=== PATIENT | female | born 1945 | race Caucasian/White ===

== ENCOUNTER 2020-06-21 19:10 | Inpatient (IN) | payer MEDICARE, OTHER ==
[~2020-06-21] VITALS: Ht 157.5 cm; Wt 56.2 kg
--- NOTE | 2020-06-21 19:33 | NUR ---
Dr. Acosta at bedside for MSE .
[2020-06-21] MEDS ORDERED: CHLO25CA22 PO (19:34)
[2020-06-21] MEDS ORDERED: DOCU-141 PO (19:34)
[2020-06-21] MEDS ORDERED: AMLO5TAB9 PO (19:34)
[2020-06-21] MEDS ORDERED: VALA500T PO (19:34)
[2020-06-21] MEDS ORDERED: LEVO75TA56 PO (19:34)
--- NOTE | 2020-06-21 19:35 | NUR ---
Pt is 75 y/o female BIB ambulance from [facility] for medical clearance and possible admission to MHU. Pt is AO x 4, able to verbalize needs. With c/o 5/10 neck pain and "feeling anxious hibbie jjibbies". Patient is brought for being on 5150 hold since 06/20/20 for being found on a neighbor's front door naked. Pt is denying the incidence. Pt also states that her last drink of alcohol, 1 bottle of Owens beer was 4 days ago. But police report says otherwise. Pt not in active distress. Cooperative with nurse. However noted with some mild tremors on hands. Will continue to monitor for safety.
[2020-06-21] MEDS ORDERED: ACETAMINOPHEN ES 500 MG TABLET ONE (19:56)
[2020-06-21] MEDS ORDERED: LORAZEPAM 1 MG TABLET ONE (19:56)
[2020-06-21] MEDS ORDERED: LORAZEPAM 0.5 MG TABLET PO ONE (20:15)
[2020-06-21] MEDS ORDERED: ACETAMINOPHEN ES 500 MG TABLET PO ONE (20:15)
--- NOTE | 2020-06-21 20:33 | NUR ---
Pt remains monitored at this time. Currently in bed, but appears unable to keep still. Pt stands up and walks around, able to be redirected. Closely monitoring being done.
--- NOTE | 2020-06-21 20:49 | NUR ---
Per Dr. Acosta, patient is medically clear to be admitted to MHU. Admitting Dx: Psychosis; Admitting Dr. Walden/Abelardo. Report given to Rika CLAUDIO.
[2020-06-21] MEDS ORDERED: MAG HYDROX/AL HYDROX/SIMETH 30 ML LIQUID UDC PO PRN (21:15)
[2020-06-21] MEDS ORDERED: BLOOD SUGAR DIAGNOSTIC 1 EACH STRIP VI ONE (21:15)
[2020-06-21] MEDS ORDERED: MAGNESIUM HYDROXIDE 30 ML LIQUID UDC PO PRN (21:15)
[2020-06-21] MEDS: LORAZEPAM 1 MG TABLET PO PRN (21:43)
[2020-06-21] MEDS: ACETAMINOPHEN 325 MG TABLET PO PRN (21:44)
--- NOTE | 2020-06-21 22:00 | NUR ---
GPS ADMISSION NOTE: Patient is a 75 year old female, brought in to the hospital by ambulance, admitted on a 5150 from [facility] in [place], prior to that patient was at home. Lives alone. Patient is admitted on a 5150 for GD and DTS. Per hold, a neighbor called police because this patient was wondering around to mobile home park, naked except for a small jacket, exposing her breasts and private parts. Patient appeared intoxicated and did not know how she got there. Upon face to face evaluation patient was awake, alert but confused. Patient minimized the event and could not understand "what the big deal is". Patient also had visible hand tremors d/t alcohol withdrawal and was medicated with Ativan and Vitamins per MD order. Dr. Walden was notified and orders were received for sleeping aids as well. Corporate Operations Compliance Manager oriented patient to the environment and provided the Patients Rights handbook , along with the patients Advisement. VS are stable, patient denies pain. Continuing to monitor for safety, confusion and any behavior escalation. No acute issues or distress noted at this time.
[2020-06-21] MEDS: TEMAZEPAM 7.5 MG CAPSULE PO PRN (22:16)
[2020-06-22] MEDS: FOLIC ACID 1 MG TABLET PO SCH ×2 (00:09→08:36)
[2020-06-22] MEDS: THIAMINE HCL 100 MG TABLET PO SCH ×2 (00:09→08:35)
[2020-06-22] MEDS: MULTIVITAMINS,THERAPEUTIC TABLET PO SCH ×2 (00:09→08:36)
[2020-06-22] MEDS: TEMAZEPAM 7.5 MG CAPSULE PO PRN ×2 (00:32→22:29)
--- NOTE | 2020-06-22 05:27 | NUR ---
Patient up and down all night. Coming out to the nurses station asking for food items and more medications. The roommate had kept patient up by leaving the room light on and yelling from time to time. Plan to assist patient to the shower this am and continue to reorient to the environment as needed. No behavioral issues noted, just forgetfulness.
[2020-06-22] MEDS: LORAZEPAM 1 MG TABLET PO PRN ×5 (06:03→23:30)
[2020-06-22 07:16] LABS: BILIRUBIN,TOTAL 0.8 mg/dL (0.2-1.0)
[2020-06-22 07:30] VITALS: BP 127/84
[2020-06-22 07:37] LABS: BASOPHILS % (AUTO) 0.8 % (0.0-2.0); EOSINOPHILS # (AUTO) 0.1 K/uL (0.0-0.7); EOSINOPHILS % (AUTO) 1.4 % (0.0-7.0); HEMATOCRIT 37.7 % (31.2-41.9); HEMOGLOBIN 13.1 g/dL (10.9-14.3); LYMPHOCYTES # (AUTO) 1.3 K/uL (20.0-40.0); LYMPHOCYTES % (AUTO) 29.4 % (20.5-51.5); MEAN CORPUSCULAR HEMOGLOBIN 35.1 uug (24.7-32.8); MEAN CORPUSCULAR HGB CONC 35 g/dL (32.3-35.6); MEAN CORPUSCULAR VOLUME 101.2 fL (75.5-95.3); MONOCYTES # (AUTO) 0.5 K/uL (2.0-10.0); MONOCYTES % (AUTO) 12.4 % (0.0-11.0); NEUTROPHILS # (AUTO) 2.4 K/uL (1.8-8.9); PLATELET COUNT (AUTO) 309 K/uL (179-408); RED BLOOD CELL COUNT(AUTO) 3.73 MIL/uL (3.63-4.92); WHITE BLOOD COUNT (AUTO) 4.3 K/uL (3.8-11.8)
--- NOTE | 2020-06-22 10:13 | NUR ---
PT STATED SHE IS MISSING HER UPPER DENTURES AND WALLET, AND SAID SHE MAY HAVE LEFT IT AT [facility] ER. FAMILY LAW MEDIATOR CALLED THE ER AND SPOKE TO NURSE ABBIE. HE STATED HE REMEMBERS THE PATIENT, AND STATED SHE DID NOT COME TO ER WITH ANY ITEMS, SHE WAS FOUND NAKED IN THE STREET.
[2020-06-22] MEDS: ACETAMINOPHEN 325 MG TABLET PO PRN ×2 (11:17→20:03)
[2020-06-22] MEDS: LEVOTHYROXINE SODIUM 75 MCG TABLET PO SCH (12:50)
[2020-06-22] MEDS: AMLODIPINE 5 MG TABLET PO SCH (12:50)
[2020-06-22] MEDS: NICOTINE 14 MG/24HR PATCH TD SCH (12:50)
--- NOTE | 2020-06-22 12:53 | NUR ---
Family Contact: There is no one that the pt can identify at this time for the SW to contact.
--- NOTE | 2020-06-22 12:54 | NUR ---
Initial Discharge Plan: Pt currently resides at [address], [place] [address]; ([phone]). Per pt, she would like to return to her home. ROSIE will work with the pt and the MD regarding appropriate discharge planning. SW will form a safe and proper discharge.
--- NOTE | 2020-06-22 14:46 | NUR ---
Gps/Veterinarian Assistant- Anxious , pacing around, kept asking for simple things. Patient is intrusive, goes to other patient's room. Found patient in the bed of onother patient who just discharged. Discouraged patient from going into other patient's bed. Claimed not note like her roommate. Brandi(sister) [phone] called couple of times, wanting to talk to the patient as well as her psychiatrist. Patient requesting to take "adaral" claimed she ghad been taking it for many yeays. informed the need to talked to her Psychiatrist.
[2020-06-22 15:24] VITALS: BP 149/82
[2020-06-22] MEDS: DOCUSATE SODIUM 100 MG CAPSULE PO SCH (17:50)
--- NOTE | 2020-06-22 18:07 | NUR ---
Gps/Infantry Senior Sergeant- Confused, walking around butt naked, claimed she spilled her foods/juices on the floor, Housekeeping helped in cleaning pt. . Instructed to change her pajama bottom, wanders around., constant redirections .
[2020-06-22 20:00] VITALS: BP 137/95
[2020-06-22] MEDS ORDERED: MIRTAZAPINE 15 MG TABLET PO SCH (20:00)
[2020-06-22] MEDS: VALACYCLOVIR HCL 500 MG TABLET PO SCH (20:02)
[2020-06-22] MEDS: SIMVASTATIN 10 MG TABLET PO SCH (20:02)
[2020-06-23] MEDS: TEMAZEPAM 7.5 MG CAPSULE PO PRN (00:14)
--- NOTE | 2020-06-23 02:59 | NUR ---
Received patient earlier in the shift wondering around looking for her room. Redirection provided. Multiple times since then, patient has been out in the boykin naked or without pants. Patient is very confused and does not know where she is or why. Constant reorientation and redirection is needed for this patient. Also noted that she is incontinent of urine at times. It is 3:00AM and patient has not slept. Continuing to keep patient safe and monitor closely that she does not bother the other patients and keeps her cloths on.
[2020-06-23 07:30] VITALS: BP 144/91
--- NOTE | 2020-06-23 07:30 | NUR ---
Received patient wandering in the Hallway patient confused and did not slept last night, patient compliant with medication and needed redirection, will continue monitor
[2020-06-23] MEDS: MULTIVITAMINS,THERAPEUTIC TABLET PO SCH (08:24)
[2020-06-23] MEDS: FOLIC ACID 1 MG TABLET PO SCH (08:24)
[2020-06-23] MEDS: THIAMINE HCL 100 MG TABLET PO SCH (08:24)
[2020-06-23] MEDS: LEVOTHYROXINE SODIUM 75 MCG TABLET PO SCH (08:24)
[2020-06-23] MEDS: VALACYCLOVIR HCL 500 MG TABLET PO SCH ×2 (08:25→20:24)
[2020-06-23] MEDS: DOCUSATE SODIUM 100 MG CAPSULE PO SCH ×2 (08:25→16:01)
[2020-06-23] MEDS: AMLODIPINE 5 MG TABLET PO SCH (08:25)
[2020-06-23] MEDS: NICOTINE 14 MG/24HR PATCH TD SCH (08:30)
[2020-06-23] MEDS: LORAZEPAM 1 MG TABLET PO PRN ×2 (11:11→20:23)
--- NOTE | 2020-06-23 12:19 | NUR ---
patient refused to eat her lunch, verbalizing that the food is poison, and she doesnt eat fish, patient argumentative, and irrational, will continue monitor
[2020-06-23] MEDS: GABAPENTIN 100 MG CAPSULE PO SCH ×2 (15:01→16:04)
[2020-06-23] MEDS: QUETIAPINE FUMARATE 25 MG TABLET PO PRN (15:25)
[2020-06-23 16:00] VITALS: BP 136/89
--- NOTE | 2020-06-23 18:15 | NUR ---
patient ate her dinner 100%, now much calm and redirectable after taking her PRN meds, will continue monitor
[2020-06-23 20:00] VITALS: BP 115/76
[2020-06-23] MEDS: ACETAMINOPHEN 325 MG TABLET PO PRN (20:23)
[2020-06-23] MEDS: SIMVASTATIN 10 MG TABLET PO SCH (20:23)
[2020-06-23] MEDS ORDERED: QUETIAPINE FUMARATE 25 MG TABLET PO SCH (21:00)
--- NOTE | 2020-06-24 04:29 | NUR ---
Received patient in the Anju chair at the beginning of the shift. Awake, but very confused. Ep Technologist attempted to engage in meaningful conversation but the patient was too delusional , forgetful and confused to have reorientation be effect. Ep Technologist provided a snack along with the evening medications. Patient has not slept in the last 2 nights and was assisted to bed ,where she has been sleeping soundly most of the night so far. Continuing to round frequently for patients safety and assess needs as they arise. No acute distress at this time noted.
[2020-06-24 07:30] VITALS: BP 97/59
[2020-06-24] MEDS: MULTIVITAMINS,THERAPEUTIC TABLET PO SCH (08:59)
[2020-06-24] MEDS: DOCUSATE SODIUM 100 MG CAPSULE PO SCH ×2 (08:59→16:37)
[2020-06-24] MEDS: LEVOTHYROXINE SODIUM 75 MCG TABLET PO SCH (08:59)
[2020-06-24] MEDS: GABAPENTIN 100 MG CAPSULE PO SCH ×3 (08:59→16:38)
[2020-06-24] MEDS: NICOTINE 14 MG/24HR PATCH TD SCH (08:59)
[2020-06-24] MEDS: FOLIC ACID 1 MG TABLET PO SCH (08:59)
[2020-06-24] MEDS: AMLODIPINE 5 MG TABLET PO SCH (09:00)
[2020-06-24] MEDS: THIAMINE HCL 100 MG TABLET PO SCH (09:05)
[2020-06-24] MEDS: VALACYCLOVIR HCL 500 MG TABLET PO SCH ×2 (09:12→20:27)
[2020-06-24 15:16] VITALS: BP 112/70
[2020-06-24 20:15] VITALS: BP 116/66
[2020-06-24] MEDS: SIMVASTATIN 10 MG TABLET PO SCH (20:27)
[2020-06-24] MEDS: ACETAMINOPHEN 325 MG TABLET PO PRN (20:40)
[2020-06-24] MEDS ORDERED: QUETIAPINE FUMARATE 25 MG TABLET PO SCH (21:00)
--- NOTE | 2020-06-25 02:53 | NUR ---
received patient in her room in bed. She is noted A/O x 2 but forgetful at times. She is ambulatory. Upon approached pt noted hyperverbal, attention seeker. She denied SI/HI/VH/AH. she is able to CFS. pt is redirectable. V/S stable at this time. patient is reassured for her safety. safety and fall precaution in place. will continue to monitor.
[2020-06-25 07:30] VITALS: BP 117/77
[2020-06-25] MEDS: AMLODIPINE 5 MG TABLET PO SCH (08:40)
[2020-06-25] MEDS: GABAPENTIN 100 MG CAPSULE PO SCH ×3 (08:40→17:17)
[2020-06-25] MEDS: LEVOTHYROXINE SODIUM 75 MCG TABLET PO SCH (08:40)
[2020-06-25] MEDS: FOLIC ACID 1 MG TABLET PO SCH (08:40)
[2020-06-25] MEDS: DOCUSATE SODIUM 100 MG CAPSULE PO SCH ×2 (08:40→17:17)
[2020-06-25] MEDS: THIAMINE HCL 100 MG TABLET PO SCH (08:44)
[2020-06-25] MEDS: VALACYCLOVIR HCL 500 MG TABLET PO SCH ×2 (08:44→20:08)
[2020-06-25] MEDS: NICOTINE 14 MG/24HR PATCH TD SCH (09:00)
[2020-06-25] MEDS: MULTIVITAMINS,THERAPEUTIC TABLET PO SCH (09:00)
[2020-06-25 15:44] LABS: *BILIRUBIN,URIN NEGATIVE (NEGATIVE); *BLOOD, URINE NEGATIVE (NEGATIVE); *CLARITY,URINE CLEAR (CLEAR); *COLOR,URINE YELLOW (YELLOW); *KETONES,URINE NEGATIVE (NEGATIVE); *UROBILINOGEN,URINE 0.2 E.U./dl (NORMAL); LEUKOCYTE ESTERASE ,URINE TRACE (NEGATIVE); NITRITE, URINE NEGATIVE (NEGATIVE); PH,URINE 7.5 (5.0-8.0); UGLUCOSE NEGATIVE (NEGATIVE)
--- NOTE | 2020-06-25 18:53 | NUR ---
patient is confused and forgetful , wandering around in the hallway, goes room to room, needed to redirect, denies SI and HI, asking for beer this morning , .
[2020-06-25 20:00] VITALS: BP 125/76
[2020-06-25] MEDS: SIMVASTATIN 10 MG TABLET PO SCH (20:08)
[2020-06-25] MEDS ORDERED: QUETIAPINE FUMARATE 25 MG TABLET PO SCH (21:00)
[2020-06-25] MEDS: TEMAZEPAM 7.5 MG CAPSULE PO PRN (22:52)
[2020-06-26] MEDS: LEVOTHYROXINE SODIUM 75 MCG TABLET PO SCH ×2 (06:54→08:16)
[2020-06-26 07:30] VITALS: BP 97/69
[2020-06-26] MEDS: MULTIVITAMINS,THERAPEUTIC TABLET PO SCH (08:12)
[2020-06-26] MEDS: NICOTINE 14 MG/24HR PATCH TD SCH (08:12)
[2020-06-26] MEDS: FOLIC ACID 1 MG TABLET PO SCH (08:12)
[2020-06-26] MEDS: THIAMINE HCL 100 MG TABLET PO SCH (08:12)
[2020-06-26] MEDS: DOCUSATE SODIUM 100 MG CAPSULE PO SCH ×2 (08:12→16:38)
[2020-06-26] MEDS: GABAPENTIN 100 MG CAPSULE PO SCH ×3 (08:12→16:38)
[2020-06-26] MEDS: VALACYCLOVIR HCL 500 MG TABLET PO SCH ×2 (08:12→20:16)
[2020-06-26] MEDS: AMLODIPINE 5 MG TABLET PO SCH (08:15)
--- NOTE | 2020-06-26 10:44 | NUR ---
SNF Referral: This writer producer faxed pt's clinicals H & P, medications, and labs to Suma elam from [facility].
--- NOTE | 2020-06-26 13:07 | NUR ---
[facility] Contact: This comic writer contacted Acrobatic Rigger Stacie ([phone]) at [facility] to locate pt's dentures. Stacie stated she was not informed about any dentures, but will follow-up and contact this comic writer.
--- NOTE | 2020-06-26 13:21 | NUR ---
[facility] Contact: Slitter Cut Off Operator Stacie ([phone]) from [facility] stated that they do not have any notes about pt's dentures. She stated pt was found naked outside and may have left her dentures at home.
--- NOTE | 2020-06-26 13:23 | NUR ---
SW Friend Contact: SW contacted pt's neighbor Vin ([phone]) who stated he is unsure if pt's dentures are in her mobile home. He stated that her mobile home is locked.
[2020-06-26 13:32] LABS: BACTERIA,URINE FEW /HPF (NONE SEEN); RBC,URINE 0-3 /HPF (0-3); SQUAMOUS EPITHELIAL CELL,UR FEW /HPF (NONE SEEN)
[2020-06-26 16:32] VITALS: BP 111/73
[2020-06-26] MEDS: QUETIAPINE FUMARATE 25 MG TABLET PO SCH (17:20)
[2020-06-26] MEDS: ACETAMINOPHEN 325 MG TABLET PO PRN (19:04)
[2020-06-26 20:13] VITALS: BP 123/77
[2020-06-26] MEDS: SIMVASTATIN 10 MG TABLET PO SCH (20:16)
[2020-06-26] MEDS ORDERED: QUETIAPINE FUMARATE 25 MG TABLET PO SCH (21:00)
[2020-06-26] MEDS ORDERED: GABAPENTIN 300 MG CAPSULE PO SCH (21:00)
--- NOTE | 2020-06-26 22:58 | NUR ---
GPS: Asleep at this time. Med.compliant and listens to re-direction from staff. Re-assured and re-directed prn. Fall precautions observed.
[2020-06-27 07:30] VITALS: BP 108/61
[2020-06-27] MEDS: NICOTINE 14 MG/24HR PATCH TD SCH (08:16)
[2020-06-27] MEDS: LEVOTHYROXINE SODIUM 75 MCG TABLET PO SCH (08:17)
[2020-06-27] MEDS: FOLIC ACID 1 MG TABLET PO SCH (08:17)
[2020-06-27] MEDS: DOCUSATE SODIUM 100 MG CAPSULE PO SCH ×2 (08:17→17:11)
[2020-06-27] MEDS: GABAPENTIN 100 MG CAPSULE PO SCH (08:17)
[2020-06-27] MEDS: VALACYCLOVIR HCL 500 MG TABLET PO SCH ×2 (08:17→20:31)
[2020-06-27] MEDS: AMLODIPINE 5 MG TABLET PO SCH (08:18)
[2020-06-27] MEDS: QUETIAPINE FUMARATE 25 MG TABLET PO SCH ×2 (08:18→17:12)
[2020-06-27] MEDS: THIAMINE HCL 100 MG TABLET PO SCH (08:26)
[2020-06-27] MEDS: MULTIVITAMINS,THERAPEUTIC TABLET PO SCH (08:26)
[2020-06-27] MEDS: GABAPENTIN 300 MG CAPSULE PO SCH ×2 (13:12→17:11)
[2020-06-27 16:00] VITALS: BP 105/67
--- NOTE | 2020-06-27 18:21 | NUR ---
patient Anxious,needy and attention seeking. Poor insight to present situation. compliant with all medication Re-directed and re-assured frequently. Safety emphasized.Denies feeling depressed when asked.
[2020-06-27 20:27] VITALS: BP 137/85
[2020-06-27] MEDS: SIMVASTATIN 10 MG TABLET PO SCH (20:29)
[2020-06-27] MEDS: ACETAMINOPHEN 325 MG TABLET PO PRN (20:29)
[2020-06-27] MEDS ORDERED: QUETIAPINE FUMARATE 100 MG TABLET PO SCH (21:00)
--- NOTE | 2020-06-27 22:39 | NUR ---
Patient anxious,needy and attention seeking. Poor insight to present situation.Re-directed and re-assured frequently. Safety emphasized.Denies feeling depressed when asked.Patient is demanding and staff splits. Patient complaint with medication.
[2020-06-27] MEDS: TEMAZEPAM 7.5 MG CAPSULE PO PRN (22:48)
[2020-06-28 07:30] VITALS: BP 121/71
[2020-06-28] MEDS: VALACYCLOVIR HCL 500 MG TABLET PO SCH ×2 (09:16→20:18)
[2020-06-28] MEDS: QUETIAPINE FUMARATE 25 MG TABLET PO SCH ×2 (09:17→17:47)
[2020-06-28] MEDS: DOCUSATE SODIUM 100 MG CAPSULE PO SCH ×2 (09:17→17:47)
[2020-06-28] MEDS: THIAMINE HCL 100 MG TABLET PO SCH (09:17)
[2020-06-28] MEDS: AMLODIPINE 5 MG TABLET PO SCH (09:18)
[2020-06-28] MEDS: LEVOTHYROXINE SODIUM 75 MCG TABLET PO SCH (09:18)
[2020-06-28] MEDS: FOLIC ACID 1 MG TABLET PO SCH (09:18)
[2020-06-28] MEDS: MULTIVITAMINS,THERAPEUTIC TABLET PO SCH (09:18)
[2020-06-28] MEDS: GABAPENTIN 300 MG CAPSULE PO SCH ×3 (09:45→17:47)
[2020-06-28] MEDS: ACETAMINOPHEN 325 MG TABLET PO PRN ×2 (12:56→21:44)
--- NOTE | 2020-06-28 14:30 | NUR ---
Gps/Postdoctoral Scientist- Ilda, kept asking for foods, claimed she is always hungry, and blaming it to all the medications given to her. Anxious, encouraged participation in her group therapy , easily gets irritable when needs not met right away.
[2020-06-28 16:00] VITALS: BP 103/65
[2020-06-28 20:00] VITALS: BP 114/61
[2020-06-28] MEDS: QUETIAPINE FUMARATE 100 MG TABLET PO SCH (20:18)
[2020-06-28] MEDS: SIMVASTATIN 10 MG TABLET PO SCH (20:18)
[2020-06-28] MEDS: TEMAZEPAM 7.5 MG CAPSULE PO PRN (22:04)
[2020-06-29 07:30] VITALS: BP 95/60
[2020-06-29] MEDS: VALACYCLOVIR HCL 500 MG TABLET PO SCH (08:30)
[2020-06-29] MEDS: FOLIC ACID 1 MG TABLET PO SCH (08:30)
[2020-06-29] MEDS: THIAMINE HCL 100 MG TABLET PO SCH (08:30)
[2020-06-29] MEDS: GABAPENTIN 300 MG CAPSULE PO SCH ×3 (08:31→16:18)
[2020-06-29] MEDS: MULTIVITAMINS,THERAPEUTIC TABLET PO SCH (08:31)
[2020-06-29] MEDS: QUETIAPINE FUMARATE 25 MG TABLET PO SCH ×2 (08:31→16:18)
[2020-06-29] MEDS: DOCUSATE SODIUM 100 MG CAPSULE PO SCH ×2 (08:31→16:18)
[2020-06-29] MEDS: LEVOTHYROXINE SODIUM 75 MCG TABLET PO SCH (08:32)
[2020-06-29] MEDS: AMLODIPINE 5 MG TABLET PO SCH (08:32)
[2020-06-29] MEDS: ACETAMINOPHEN 325 MG TABLET PO PRN ×2 (10:36→19:56)
[2020-06-29 16:00] VITALS: BP 118/72
[2020-06-29 20:00] VITALS: BP 108/63
[2020-06-29] MEDS: SIMVASTATIN 10 MG TABLET PO SCH (20:42)
[2020-06-29] MEDS: QUETIAPINE FUMARATE 100 MG TABLET PO SCH (20:42)
[2020-06-29] MEDS: TEMAZEPAM 7.5 MG CAPSULE PO PRN (22:16)
[2020-06-30] MEDS: ACETAMINOPHEN 325 MG TABLET PO PRN (04:43)
--- NOTE | 2020-06-30 06:05 | NUR ---
GPS/Rn - Pt attended to during night, noted frequent report and request for food and others. Advised pt to take a break from eating due to it night and she will need to take breakfast. Pt had PRN Tyl at 1956 and 0442 per mild pain. Also pt requested Restoril at 2216. Was effective for some hours. Pt awake at this time.
[2020-06-30 07:30] VITALS: BP 116/71
[2020-06-30] MEDS: THIAMINE HCL 100 MG TABLET PO SCH (08:37)
[2020-06-30] MEDS: AMLODIPINE 5 MG TABLET PO SCH (08:37)
[2020-06-30] MEDS: MULTIVITAMINS,THERAPEUTIC TABLET PO SCH (08:37)
[2020-06-30] MEDS: FOLIC ACID 1 MG TABLET PO SCH (08:37)
[2020-06-30] MEDS: DOCUSATE SODIUM 100 MG CAPSULE PO SCH ×2 (08:38→17:25)
[2020-06-30] MEDS: GABAPENTIN 300 MG CAPSULE PO SCH ×3 (08:38→17:25)
[2020-06-30] MEDS: QUETIAPINE FUMARATE 25 MG TABLET PO SCH ×2 (08:38→17:25)
[2020-06-30] MEDS: LEVOTHYROXINE SODIUM 75 MCG TABLET PO SCH (08:39)
[2020-06-30 16:36] VITALS: BP 122/72
[2020-06-30 20:00] VITALS: BP 110/72
[2020-06-30] MEDS: QUETIAPINE FUMARATE 100 MG TABLET PO SCH (20:24)
[2020-06-30] MEDS: SIMVASTATIN 10 MG TABLET PO SCH (20:24)
[2020-07-01] MEDS: TEMAZEPAM 7.5 MG CAPSULE PO PRN ×2 (00:03→21:13)
[2020-07-01] MEDS: ACETAMINOPHEN 325 MG TABLET PO PRN ×3 (04:12→22:00)
[2020-07-01] MEDS: LORAZEPAM 1 MG TABLET PO PRN (04:12)
--- NOTE | 2020-07-01 06:07 | NUR ---
Patient slept on and off last night. Only up a couple of times asking for a snack or a "Pill to help me sleep". Medicated per order. No acute distress. Chain Pegger noted that this patient is forgetful and needs reorientation to the situation at times. Continuing to monitor for safety.
[2020-07-01 07:48] VITALS: BP 99/59
[2020-07-01] MEDS: GABAPENTIN 300 MG CAPSULE PO SCH ×3 (08:47→16:25)
[2020-07-01] MEDS: MULTIVITAMINS,THERAPEUTIC TABLET PO SCH (08:47)
[2020-07-01] MEDS: QUETIAPINE FUMARATE 25 MG TABLET PO SCH ×2 (08:47→16:26)
[2020-07-01] MEDS: DOCUSATE SODIUM 100 MG CAPSULE PO SCH ×2 (08:47→16:25)
[2020-07-01] MEDS: FOLIC ACID 1 MG TABLET PO SCH (08:47)
[2020-07-01] MEDS: AMLODIPINE 5 MG TABLET PO SCH (08:48)
[2020-07-01] MEDS: LEVOTHYROXINE SODIUM 75 MCG TABLET PO SCH (08:48)
[2020-07-01] MEDS: THIAMINE HCL 100 MG TABLET PO SCH (08:48)
[2020-07-01] MEDS: QUETIAPINE FUMARATE 25 MG TABLET PO PRN ×2 (13:45→22:00)
[2020-07-01 16:48] VITALS: BP 117/72
[2020-07-01] MEDS: SIMVASTATIN 10 MG TABLET PO SCH (20:31)
[2020-07-01] MEDS: QUETIAPINE FUMARATE 100 MG TABLET PO SCH (20:31)
[2020-07-01 21:03] VITALS: BP 122/82
[2020-07-01 22:27] LABS: *BILIRUBIN,URIN NEGATIVE (NEGATIVE); *BLOOD, URINE NEGATIVE (NEGATIVE); *CLARITY,URINE CLEAR (CLEAR); *COLOR,URINE LIGHT YELLOW (YELLOW); *KETONES,URINE NEGATIVE (NEGATIVE); *UROBILINOGEN,URINE 0.2 E.U./dl (NORMAL); LEUKOCYTE ESTERASE ,URINE 1+ (NEGATIVE); NITRITE, URINE NEGATIVE (NEGATIVE); UGLUCOSE NEGATIVE (NEGATIVE)
--- NOTE | 2020-07-01 22:42 | NUR ---
Patient was c/o having a " urine infection". Specimen sent to the lab. This patient has multiple requests for medications and food. Her attitude is angry and demanding. Sales Account Representative noted that patient is not getting along with her peers and was arguing with them in the day room about the TV station. Sales Account Representative redirected the patient and encouraged compromise which patient was reluctant to do and stormed off to her room. Continuing to monitor for safety and behavior escalation. No acute issues noted at this time.
[2020-07-01 23:06] LABS: BACTERIA,URINE NONE SEEN /HPF (NONE SEEN); RBC,URINE 0-3 /HPF (0-3); SQUAMOUS EPITHELIAL CELL,UR FEW /HPF (NONE SEEN)
--- NOTE | 2020-07-02 06:36 | NUR ---
Boy Stark paged through [facility] regarding UA results, awaiting call back.
[2020-07-02 07:30] VITALS: BP 104/62
[2020-07-02] MEDS: QUETIAPINE FUMARATE 25 MG TABLET PO SCH ×2 (08:11→16:39)
[2020-07-02] MEDS: LEVOTHYROXINE SODIUM 75 MCG TABLET PO SCH (08:11)
[2020-07-02] MEDS: MULTIVITAMINS,THERAPEUTIC TABLET PO SCH (08:11)
[2020-07-02] MEDS: FOLIC ACID 1 MG TABLET PO SCH (08:11)
[2020-07-02] MEDS: GABAPENTIN 300 MG CAPSULE PO SCH ×3 (08:12→16:39)
[2020-07-02] MEDS: DOCUSATE SODIUM 100 MG CAPSULE PO SCH ×2 (08:12→16:39)
[2020-07-02] MEDS: THIAMINE HCL 100 MG TABLET PO SCH (08:12)
[2020-07-02] MEDS: AMLODIPINE 5 MG TABLET PO SCH (08:12)
[2020-07-02] MEDS ORDERED: QUETIAPINE FUMARATE 25 MG TABLET PO PRN (10:30)
--- NOTE | 2020-07-02 11:29 | NUR ---
SW Family Contact: This residential mortgage underwriter received a phone call from pt's sister Brandi ([phone]) and discussed treatment and discharge plan. She is aware and agreeable. However, sister requested to talk to the doctor. This residential mortgage underwriter notified Dr. Walden.
--- NOTE | 2020-07-02 11:35 | NUR ---
SW Substance Abuse Intervention: Patient was provided with a brief substance abuse intervention and will provide resources: [facility] ([phone]), [facility] ([phone]), and [facility] ([phone]).
--- NOTE | 2020-07-02 13:38 | NUR ---
Firearms Report DOJ: Composite Assembler completed and submitted a [employer] firearms report for 5150 grave disability certification. A copy of report has been placed in patient chart.
[2020-07-02 15:08] VITALS: BP 120/76
[2020-07-02] MEDS: SIMVASTATIN 10 MG TABLET PO SCH (20:27)
[2020-07-02 20:46] VITALS: BP 151/89
[2020-07-02] MEDS ORDERED: QUETIAPINE FUMARATE 100 MG TABLET PO SCH (21:00)
[2020-07-02] MEDS: TEMAZEPAM 7.5 MG CAPSULE PO PRN (22:40)
[2020-07-02] MEDS: LORAZEPAM 1 MG TABLET PO PRN (22:40)
[2020-07-02] MEDS: ACETAMINOPHEN 325 MG TABLET PO PRN (23:56)
--- NOTE | 2020-07-03 02:08 | NUR ---
RECEIVED PATIENT IN ACTIVITY ROOM.SHE IS FORGETFUL, NEEDY AND BECOMES IRRITABLE WHEN NEEDS ARE NOT MET RIGHT AWAY. KEPT MAKING FREQUENT REQUEST FOR FOOD OR MEDS. DENIES AH/SI.SHE WAS GIVEN TAB ATIVAN AT 22:30 .WILL CONTINUE TO MONITOR.
--- NOTE | 2020-07-03 06:42 | NUR ---
SLEPT ON AND OFF FOR 6:15 HOURS.
[2020-07-03 07:30] VITALS: BP 96/68
[2020-07-03] MEDS: FOLIC ACID 1 MG TABLET PO SCH (08:35)
[2020-07-03] MEDS: THIAMINE HCL 100 MG TABLET PO SCH (08:35)
[2020-07-03] MEDS: GABAPENTIN 300 MG CAPSULE PO SCH ×3 (08:35→17:29)
[2020-07-03] MEDS: DOCUSATE SODIUM 100 MG CAPSULE PO SCH ×2 (08:35→17:29)
[2020-07-03] MEDS: QUETIAPINE FUMARATE 25 MG TABLET PO SCH ×2 (08:35→17:29)
[2020-07-03] MEDS: LEVOTHYROXINE SODIUM 75 MCG TABLET PO SCH (08:36)
[2020-07-03] MEDS: MULTIVITAMINS,THERAPEUTIC TABLET PO SCH (08:36)
[2020-07-03] MEDS: AMLODIPINE 5 MG TABLET PO SCH (08:36)
[2020-07-03 11:23] LABS: BASOPHILS % (AUTO) 1.2 % (0.0-2.0); EOSINOPHILS # (AUTO) 0.1 K/uL (0.0-0.7); EOSINOPHILS % (AUTO) 1.7 % (0.0-7.0); HEMATOCRIT 37.4 % (31.2-41.9); HEMOGLOBIN 12.9 g/dL (10.9-14.3); LYMPHOCYTES # (AUTO) 1.4 K/uL (20.0-40.0); MEAN CORPUSCULAR HEMOGLOBIN 35.3 uug (24.7-32.8); MEAN CORPUSCULAR HGB CONC 35 g/dL (32.3-35.6); MEAN CORPUSCULAR VOLUME 102.1 fL (75.5-95.3); MONOCYTES # (AUTO) 0.5 K/uL (2.0-10.0); MONOCYTES % (AUTO) 12.1 % (0.0-11.0); NEUTROPHILS # (AUTO) 1.8 K/uL (1.8-8.9); PLATELET COUNT (AUTO) 317 K/uL (179-408); RED BLOOD CELL COUNT(AUTO) 3.66 MIL/uL (3.63-4.92); WHITE BLOOD COUNT (AUTO) 3.8 K/uL (3.8-11.8)
[2020-07-03 11:35] LABS: BILIRUBIN,TOTAL 0.4 mg/dL (0.2-1.0); POTASSIUM 4.7 mmol/L (3.5-5.1)
[2020-07-03 15:51] VITALS: BP 115/68
[2020-07-03] MEDS: ACETAMINOPHEN 325 MG TABLET PO PRN (20:08)
[2020-07-03] MEDS: SIMVASTATIN 10 MG TABLET PO SCH (20:08)
[2020-07-03 20:26] VITALS: BP 102/67
[2020-07-03] MEDS ORDERED: QUETIAPINE FUMARATE 100 MG TABLET PO SCH (21:00)
--- NOTE | 2020-07-03 22:30 | NUR ---
PATIENT RECEIVED IN BED AWAKE. PATIENT CONTINUES TO BE NEEDY. PATIENT COMPLAINT WITH MEDICATION. NO AGGRESSIVE OR COMBATIVE BEHAVIOR NOTED WILL CONTINUE TO MONITOR. BED IN LOWEST POSITION, BED LOCKED, AND BED ALARM ON WHILE IN BED. PATIENT STATES HAVING RIGHT LEG PAIN 6/10 TYLENOL GIVEN ORDERED, WILL CONTINUE TO MONITOR.
[2020-07-04 07:30] VITALS: BP 128/76
--- NOTE | 2020-07-04 08:03 | NUR ---
SW Discharge Note: Patient will be discharged to long-term [facility] [address] [place] [address]; ([phone]) via ambulance at 12PM. Interior Design Project Manager spoke with Sumadanie elam at [facility] ([phone]) who stated patient will be accepted at facility today. Patients sister Brandi ([phone]) is aware and agreeable. Patient is alert and oriented x2-3 and is not able to plan for self-care at this time but is willing to accept care provided for his at the facility. Patient denies suicidal or homicidal ideation. Patient is aware and agreeable with discharge plans. Patient will follow-up with (Psychiatrist) Dr. Walden and (Design Sales Consultant) Dr. Zhou at [facility]. Patient was provided referrals to the following substance abuse programs: [facility]stance Abuse Self-helpline ([phone]); [facility] [address] [place] [address] ([phone]); [facility] [address] [facility] [address] ([phone]); [facility] ([phone]); [facility] ([phone]); [facility] ([phone]); [facility] ([phone]). Patient presented with euthymic mood and congruent affect.
--- NOTE | 2020-07-04 08:26 | NUR ---
SW Family Contact: This publicity writer contacted pt's sister Brandi ([phone]) and left a voicemail in regards to pt's discharge plan. Pt does not want her sister to be involved in her care, however, she addressed this with the doctor as well.
[2020-07-04] MEDS: GABAPENTIN 300 MG CAPSULE PO SCH ×2 (09:02→12:40)
[2020-07-04] MEDS: QUETIAPINE FUMARATE 25 MG TABLET PO SCH (09:02)
[2020-07-04] MEDS: DOCUSATE SODIUM 100 MG CAPSULE PO SCH (09:02)
[2020-07-04] MEDS: FOLIC ACID 1 MG TABLET PO SCH (09:03)
[2020-07-04] MEDS: MULTIVITAMINS,THERAPEUTIC TABLET PO SCH (09:03)
[2020-07-04] MEDS: LEVOTHYROXINE SODIUM 75 MCG TABLET PO SCH (09:03)
[2020-07-04 09:04] VITALS: BP 128/76
[2020-07-04] MEDS: AMLODIPINE 5 MG TABLET PO SCH (09:04)
[2020-07-04] MEDS: THIAMINE HCL 100 MG TABLET PO SCH (09:15)
[2020-07-04] MEDS: ACETAMINOPHEN 325 MG TABLET PO PRN (09:33)
--- NOTE | 2020-07-04 14:04 | NUR ---
Pt is being discharged to [facility] via ambulance. VS stable, pt is A/o x 4. Pt is willing to go. Report was given to GONZÁLEZ Hart.
== END 2020-07-04 13:30 | DRG 885 ==
LOC: ER 19:10 → GPS 20:55
PROVIDERS: ADMIT Psychiatry & Neurology Psychosomatic Medicine; ATTEND Nurse Practitioner Acute Care
DX: F25.0 Schizoaffective disorder, bipolar type (principal); E87.1 Hypo-osmolality and hyponatremia; F23 Brief psychotic disorder; R53.82 Chronic fatigue, unspecified; E03.9 Hypothyroidism, unspecified; Z90.710 Acquired absence of both cervix and uterus; Z88.2 Allergy status to sulfonamides; F17.210 Nicotine dependence, cigarettes, uncomplicated; B02.9 Zoster without complications; E78.5 Hyperlipidemia, unspecified; F41.9 Anxiety disorder, unspecified; F90.9 Attention-deficit hyperactivity disorder, unspecified type; I10 Essential (primary) hypertension; F29 Unspecified psychosis not due to a substance or known physiological condition; F39 Unspecified mood [affective] disorder; F19.90 Other psychoactive substance use, unspecified, uncomplicated; F10.20 Alcohol dependence, uncomplicated; Z73.6 Limitation of activities due to disability; R73.9 Hyperglycemia, unspecified; F43.10 Post-traumatic stress disorder, unspecified
CPT/HCPCS: 36415; 71045; 84443; 85025; 87086; 93005; A4663; A9150